=== PATIENT | female | born 2005 | race Two or more races ===

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

== ENCOUNTER 2025-04-02 19:06 | Emergency (ER) | payer MEDICAID ==
[~2025-04-02] VITALS: Ht 170.2 cm; Wt 44.5 kg
[~2025-04-02 19:06] MED LIST: ABIL10 MT; HYDR50TA55 MT; SERT-112 MT
[2025-04-02 19:14] VITALS: O2SAT 100
[2025-04-02 19:28] VITALS: BP 120/74; PULSE 115; RESP 16; TEMP 38.3; O2SAT 98
[2025-04-02] MEDS ORDERED: METOCLOPRAMIDE HCL 10MG TABLET PO ONE (20:30)
[2025-04-02] MEDS ORDERED: KETOROLAC 15MG/ML VIAL IM ONE (20:30)
[2025-04-02] MEDS ORDERED: DIPHENHYDRAMINE 25MG CAPSULE PO ONE (20:30)
== END 2025-04-02 20:42 | disposition left against medical advice (07) ==
LOC: ER 19:06
DX: G43.909 Migraine, unspecified, not intractable, without status migrainosus (principal); F31.9 Bipolar disorder, unspecified; J45.909 Unspecified asthma, uncomplicated; Z79.899 Other long term (current) drug therapy; Z91.048 Other nonmedicinal substance allergy status
CPT/HCPCS: 99282